=== PATIENT | female | born 1955 | race Caucasian/White ===

== ENCOUNTER 2018-10-10 08:08 | Outpatient (CLI) | payer MEDICARE, MEDICAID ==
--- NOTE | 2018-10-10 20:41 | ULT ---
RIGHT UPPER QUADRANT ULTRASOUND: 10/10/18 Ultrasonography of the right upper quadrant was performed for evaluation of pain. The liver is normal in size and appearance. The visible portions of the pancreas appeared normal, though not all areas w ere seen equally well. The right kidney appears normal and is 10.2 cm long. The gallbladder had a tra ce of sludge in it, but no stones or wall thickening. There was no tenderness to pressing over the ga llbladder. The common bile duct was a normal 4 mm in caliber. The aorta showed no aneurysm. IMPRESSION: No acute right upper quadrant findings. At most, a minor trace of sludge in the gallbladder. POS: HOME
== END 2018-10-10 08:09 | disposition home or self-care (01) ==
LOC: BURULT 08:08
PROVIDERS: ATTEND Family Medicine
DX: R10.11 Right upper quadrant pain (principal)
CPT/HCPCS: 76705

== ENCOUNTER 2019-09-23 11:41 | Outpatient (CLI) | payer MEDICARE, MEDICAID ==
--- NOTE | 2019-09-23 14:06 | RAD ---
CHEST 2 VIEWS: DATE: 09/23/2019. COMPARISON: Comparison is made with a 12/25/2017 study. FINDINGS: The lungs are mildly hyperexpanded but clear. No acute infiltrate was appreciated. Markings over th e left lower chest are felt to be due to overlying breast tissue. A somewhat unusual confluence of markings just lateral to the right hilum is also felt to be just unusual markings. There are no effu sions or congestive changes present. IMPRESSION: Mildly hyperexpanded lungs, but no acute findings. Small masses and similar pathology would be easy to miss in this patient. If at any point that becomes a concern or consideration, CT would be needed . POS: HOME
== END 2019-09-23 11:42 | disposition home or self-care (01) ==
LOC: BURRAD 11:41
PROVIDERS: ATTEND Nurse Practitioner Family
DX: R07.89 Other chest pain (principal); R91.8 Other nonspecific abnormal finding of lung field
CPT/HCPCS: 71046

== ENCOUNTER 2023-02-05 07:40 | Emergency (ER) | payer MEDICARE, MEDICAID | END 2023-02-05 08:06 | disposition home or self-care (01) | LOC: BURERS 07:40 | DX: G89.29 Other chronic pain (principal) | CPT/HCPCS: 99281 ==